=== PATIENT | female | born 1965 | race African-American/Black ===

== ENCOUNTER → 2020-08-20 | Outpatient (CLI) | payer OTHER ==
[2020-08-20 10:09] LABS: ALBUMIN 4.3 g/dL (3.4-5.0); ALBUMIN/GLOBULIN RATIO 1.4 (1.0-1.7); CALCIUM 9.3 mg/dL (8.5-10.1); CREATININE 0.7 mg/dL (0.6-1.0); GFR 105.1; HEMATOCRIT 39.6 % (36.0-47.0); HEMOGLOBIN 12.9 g/dL (12.0-15.5); POTASSIUM 4.3 mmol/L (3.5-5.1); RED BLOOD COUNT 4.86 x10^6/uL (3.50-5.40); RED CELL DISTRIBUTION WIDTH 14.3 % (11.5-14.5); TOTAL BILIRUBIN 0.5 mg/dL (0.2-1.0); TOTAL PROTEIN 7.4 g/dL (6.4-8.2); WHITE BLOOD COUNT 5.3 x10^3/uL (4.0-11.0)
[2020-08-20 10:11] LABS: CHOLESTEROL/HDL RATIO 1.7
[2020-08-20 23:16] LABS: HEMOGLOBIN A1C 9.8 % (4.8-5.6)
--- NOTE | 2020-08-21 12:07 | RAD ---
EXAM: Bilateral digital screening mammogram with tomosynthesis. HISTORY: 54-year-old female presents for screening mammography. TECHNIQUE: Full-field digital craniocaudal and mediolateral oblique 2D and 3D tomosynthesis images of both breasts are obtained for evaluation. Computer aided detection was applied. COMPARISON: 06/01/2018 BREAST PARENCHYMAL DENSITY: Level A - Mostly fat. FINDINGS: There is a small nodular asymmetry at the 4:30 position of the right breast at anterior to mid depth without a correlate on prior studies. There are additional areas of asymmetry and nodularit y which are stable when allowing for differences in technique. There are benign complications. There is no architectural distortion. IMPRESSION: BI-RADS Category 0: Incomplete. Additional imaging needed. RECOMMENDATION: Evaluation with a right breast sonogram is recommended to assess nodular asymmetry at the 4:30 position anterior to mid depth. If your mammogram demonstrates that you have dense breast tissue, which could hide abnormalities, and if you have other risk factors for breast cancer that have been identified, you might benefit from s upplemental screening tests that may be suggested by your ordering physician. Dense breast tissue, i n and of itself, is a relatively common condition. This information is not provided to cause undue c oncern, but rather to raise your awareness and to promote discussion with your physician regarding th e presence of other risk factors, in addition to dense breast tissue. A report of your mammography re sults will be sent to you and your physician. You should contact your physician if you have any ques tions or concerns regarding this report. Mammography is a sensitive method for finding small breast cancers, but it does not detect them all a nd is not a substitute for careful clinical examination. A negative mammogram does not negate a clin ically suspicious finding and should not result in delay in biopsying a clinically suspicious abnorma lity. PQRS compliance statement - Patient information was entered into a reminder system with a target due date for the next mammogram. "Our facility is accredited by the [employer] Mammography [employer]." Electronically signed by: Mary Perry MD (08/21/2020 12:04 PM) [id number]
== END ==
LOC: LAB 09:23
PROVIDERS: ATTEND Family Medicine
DX: E11.9 Type 2 diabetes mellitus without complications (principal); E78.5 Hyperlipidemia, unspecified
CPT/HCPCS: 36415; 77063; 77067; 80053; 80061; 83036; 84681; 85027

== ENCOUNTER → 2020-09-03 | Outpatient (CLI) | payer OTHER ==
--- NOTE | 2020-09-04 09:44 | RAD ---
INDICATION: 54 year-old female presents for follow-up sonographic imaging of an abnormality seen on screening mammogram TECHNIQUE: High-resolution ultrasound was performed at the site of mammographic abnormality. COMPARISON: 08/20/2020 FINDINGS: Sonographic evaluation of the right breast in the region of mammographic abnormality and ri ght axilla demonstrates unremarkable fibroglandular tissue without evidence for suspicious cystic or solid mass, lymphadenopathy or other significant sonographic finding. IMPRESSION: Probably benign finding. RECOMMENDATION: Recommend follow up diagnostic right mammogram in 6 months. BI-RADS 3: Probably Benign Electronically signed by: Bob Stephens MD (09/04/2020 9:42 AM) [id number]
== END ==
LOC: US 14:31
PROVIDERS: ATTEND Family Medicine
DX: N63.10 Unspecified lump in the right breast, unspecified quadrant (principal)
CPT/HCPCS: 76641

== ENCOUNTER → 2021-01-15 | Outpatient (CLI) | payer OTHER ==
[2021-01-15 15:03] LABS: ALBUMIN 3.8 g/dL (3.4-5.0); ALBUMIN/GLOBULIN RATIO 1.2 (1.0-1.7); CALCIUM 9.4 mg/dL (8.5-10.1); CREATININE 0.8 mg/dL (0.6-1.0); GFR 89.8; TOTAL BILIRUBIN 0.3 mg/dL (0.2-1.0)
[2021-01-16 01:24] LABS: HEMOGLOBIN A1C 10.4 % (4.8-5.6)
== END ==
LOC: LAB 14:17
PROVIDERS: ATTEND Family Medicine
DX: E11.9 Type 2 diabetes mellitus without complications (principal)
CPT/HCPCS: 36415; 80053; 83036